=== PATIENT | male | born 1995 | race Caucasian/White ===

== ENCOUNTER 2017-09-21 22:53 | Emergency (ER) | payer SELFPAY ==
[2017-09-21 23:01] VITALS: BP 161/96
[2017-09-21] MEDS ORDERED: diphenhydrAMINE 25 MG Cap PO ONE (23:19)
--- NOTE | 2017-09-21 23:23 | EDM.PDOC ---
ED HPI GENERAL MEDICAL PROBLEM - General Chief Complaint: Eye Problems Stated Complaint: EYE PAIN Time Seen by Provider: 09/21/17 23:10 Source of Information: Reports: Patient, Family History Limitations: Reports: No Limitations - History of Present Illness INITIAL COMMENTS - FREE TEXT/NARRATIVE: Patient reports sharp stabbing pain behind his left eye. He states this started yesterday around 4 pm. He likens it to prior migraines, but he states prior migraine headaches involved the whole head not just this area. He does have some blurry vision. Denies taking anything prior to arrival. He has no nausea or vomiting. His girlfriend is currently ill with an upper respiratory infection. He denies these symptoms. He denies fever or chills, is not short of breath. No neurologic changes. No speech or gait changes. Onset: Gradual Onset Date: 09/20/17 Duration: Intermittent Quality: Reports: Sharp, Stabbing Severity: Moderate Associated Symptoms: Reports: Other (blurry vision) Left Eye Pain Score (Numeric/FACES): 9 - Related Data Allergies Allergy/AdvReac Type Severity Reaction Status Date / Time sumatriptan [From Imitrex] Allergy Numbness Verified 09/21/17 23:01 sumatriptan succinate Allergy Numbness Verified 09/21/17 23:01 [From Imitrex] Home Meds: Home Meds Ibuprofen 600 mg PO Q6HR PRN #30 tablet 09/26/13 [Rx] Past Medical History - Past Health History Medical/Surgical History: Denies Medical/Surgical History Social & Family History - Tobacco Use Smoking Status *Q: Current Every Day Smoker Years of Tobacco use: 3 Packs/Tins Daily: 1 Second Hand Smoke Exposure: No - Alcohol Use Days Per Week of Alcohol Use: 0 - Recreational Drug Use Recreational Drug Use: No ED ROS GENERAL - Review of Systems Review Of Systems: See Below Constitutional: Reports: No Symptoms HEENT: Reports: Eye Pain Respiratory: Reports: No Symptoms Cardiovascular: Reports: No Symptoms Endocrine: Reports: No Symptoms GI/Abdominal: Reports: No Symptoms : Reports: No Symptoms Musculoskeletal: Reports: No Symptoms Skin: Reports: No Symptoms Neurological: Reports: No Symptoms Psychiatric: Reports: No Symptoms Hematologic/Lymphatic: Reports: No Symptoms Immunologic: Reports: No Symptoms ED EXAM GENERAL W FULL EYE - Physical Exam Exam: See Below Exam Limited By: No Limitations General Appearance: Alert, WD/WN, Mild Distress Eye Exam: Bilateral Eye: EOMI, Normal Inspection, PERRL Visual Acuity (R) 20/: 20 Visual Acuity (L) 20/: 30 (supposed to be wearing corrective lenses) With Correction: No Eyelids: Bilateral: Normal Appearance Conjunctiva & Sclera: Left: Injected Cornea Exam: Bilateral: Normal Appearance Extraocular Movements: Bilateral: Intact Pupils: Normal Accommodation Pupillary Size: Bilateral: 3 mm Pupillary Reaction: Bilateral: Brisk Anterior Chamber: Bilateral: Normal Appearance Posterior Chamber: Bilateral: Normal Funduscopic Ears: Normal TMs Nose: Normal Inspection, Normal Mucosa, No Blood Throat/Mouth: Normal Inspection, Normal Lips, Normal Teeth, Normal Gums, Normal Oropharynx, Normal Voice, No Airway Compromise Head: Atraumatic, Normocephalic Neck: Normal Inspection, Supple, Non-Tender, Full Range of Motion Respiratory/Chest: No Respiratory Distress, Lungs Clear, Normal Breath Sounds, No Accessory Muscle Use, Chest Non-Tender Cardiovascular: Normal Peripheral Pulses, Regular Rate, Rhythm, No Edema, No Gallop, No JVD, No Murmur, No Rub GI/Abdominal: Normal Bowel Sounds, Soft, Non-Tender, No Organomegaly, No Distention, No Abnormal Bruit, No Mass Extremities: Normal Inspection, Normal Range of Motion, Non-Tender, Normal Capillary Refill, No Pedal Edema Neurological: Alert, Oriented, CN II-XII Intact, Normal Cognition, Normal Gait, Normal Reflexes, No Motor/Sensory Deficits Psychiatric: Normal Affect, Normal Mood Skin Exam: Warm, Dry, Intact, Normal Color, No Rash Lymphatic: No Adenopathy Course - Vital Signs Last Recorded V/S: Last Vital Signs Temp 35.7 C 09/21/17 22:58 Pulse 75 09/21/17 22:58 Resp 18 09/21/17 22:58 BP 161/96 H 09/21/17 22:58 Pulse Ox 100 09/21/17 22:58 - Orders/Labs/Meds Orders: Active Orders 24 hr Category Date Time Status chlorproMAZINE [Thorazine] Med 09/21/17 23:16 Once 25 mg IM ONETIME ONE Departure - Departure Time of Disposition: 23:26 Disposition: Home, Self-Care 01 Condition: Good Clinical Impression: Migraine equivalent - Discharge Information Instructions: Blurred Vision, Adult, Migraine Headache, [id number] Referrals: PCP,None [Primary Care Provider] - Additional Instructions: Follow up with your primary doctor as needed for symptom managment. If pain continues then you need to go see your eye doctor for further investigation. I do not see any acute concerns with your left eye. Your nose bleed is likely coincidental. This may be a variant of your migraine headaches. Take ibuprofen as needed for the pain. Please call if you have any further questions or concerns. - Problem List & Annotations (1) Migraine equivalent SNOMED Code(s): 06987649 Code(s): G43.109 - MIGRAINE WITH AURA, NOT INTRACTABLE, W/O STATUS MIGRAINOSUS Status: Acute Priority: Low Current Visit: Yes - Problem List Review Problem List Initiated/Reviewed/Updated: Yes - My Orders Last 24 Hours: My Active Orders 09/21/17 23:16 chlorproMAZINE [Thorazine] 25 mg IM ONETIME ONE - Assessment/Plan Last 24 Hours: My Active Orders 09/21/17 23:16 chlorproMAZINE [Thorazine] 25 mg IM ONETIME ONE Assessment:: migraine Plan: Follow up with your primary doctor as needed for symptom managment. If pain continues then you need to go see your eye doctor for further investigation. I do not see any acute concerns with your left eye. Your nose bleed is likely coincidental. This may be a variant of your migraine headaches. Take ibuprofen as needed for the pain. Please call if you have any further questions or concerns.
== END 2017-09-21 23:31 | disposition home or self-care (01) ==
LOC: VM.ED 22:53
DX: G43.109 Migraine with aura, not intractable, without status migrainosus (principal); F17.210 Nicotine dependence, cigarettes, uncomplicated; Z88.8 Allergy status to other drugs, medicaments and biological substances
CPT/HCPCS: 96372; 99283; A9270; J3230

== ENCOUNTER 2017-09-23 01:30 | Emergency (ER) | payer SELFPAY ==
[2017-09-23] MEDS ORDERED: Ketorolac 30 MG/ML SDV IM ONE (01:45)
[2017-09-23 01:51] VITALS: BP 140/82
[2017-09-23] MEDS ORDERED: Take Home: Acetaminophen/HYDROcodone 325-10 MG, 5 Tab Pack PO ONE (01:54)
--- NOTE | 2017-09-23 01:59 | EDM.PDOC ---
ED HPI GENERAL MEDICAL PROBLEM - General Chief Complaint: Headache Stated Complaint: Left sided headache Time Seen by Provider: 09/23/17 01:38 Source of Information: Reports: Patient History Limitations: Reports: No Limitations - History of Present Illness INITIAL COMMENTS - FREE TEXT/NARRATIVE: Patient presents with headache on the left side. I saw him on 09/21/16 with similar complaints. He was also seen in the clinic on Friday with similar complaints. Did have a head CT done at that time. Still complains of similar symptoms. Headache on the left front of his head with pain behind the left eye. Some blurry vision. NO nausea or vomiting, no chest pain, SOB, loss of consciousness, no gait disturbances. Report of CT shows some parasinus disease , no indication of side, but my viewing of the images appears to be on the left side. Onset Date: 09/20/17 Duration: Intermittent Location: Reports: Face Quality: Reports: Ache Severity: Moderate Worsens with: Reports: None Associated Symptoms: Reports: Headaches left sided headache/behind eye Pain Score (Numeric/FACES): 8 - Related Data Allergies Allergy/AdvReac Type Severity Reaction Status Date / Time sumatriptan [From Imitrex] Allergy Numbness Verified 09/21/17 23:01 sumatriptan succinate Allergy Numbness Verified 09/21/17 23:01 [From Imitrex] Home Meds: Home Meds Ibuprofen 600 mg PO Q6HR PRN #30 tablet 09/26/13 [Rx] Past Medical History - Past Health History Medical/Surgical History: Denies Medical/Surgical History Social & Family History - Tobacco Use Smoking Status *Q: Current Every Day Smoker Years of Tobacco use: 3 Packs/Tins Daily: 1 Second Hand Smoke Exposure: No - Alcohol Use Days Per Week of Alcohol Use: 0 - Recreational Drug Use Recreational Drug Use: No ED ROS GENERAL - Review of Systems Review Of Systems: See Below Constitutional: Reports: No Symptoms HEENT: Reports: Vision Change (blurry vision left side) Respiratory: Reports: No Symptoms Cardiovascular: Reports: No Symptoms Endocrine: Reports: No Symptoms GI/Abdominal: Reports: No Symptoms : Reports: No Symptoms Musculoskeletal: Reports: No Symptoms Skin: Reports: No Symptoms Neurological: Reports: Headache Psychiatric: Reports: No Symptoms Hematologic/Lymphatic: Reports: No Symptoms Immunologic: Reports: No Symptoms - Physical Exam Exam: See Below Exam Limited By: No Limitations General Appearance: Alert, WD/WN, Mild Distress Eye Exam: Bilateral Eye: EOMI, Normal Inspection, PERRL Ears: Normal TMs Nose: Normal Inspection, Normal Mucosa, No Blood Throat/Mouth: Normal Inspection, Normal Lips, Normal Teeth, Normal Gums, Normal Oropharynx, Normal Voice, No Airway Compromise Head Exam: Atraumatic, Normocephalic Neck: Normal Inspection, Supple, Non-Tender, Full Range of Motion Respiratory/Chest: No Respiratory Distress, Lungs Clear, Normal Breath Sounds, No Accessory Muscle Use, Chest Non-Tender Cardiovascular: Normal Peripheral Pulses, Regular Rate, Rhythm, No Edema, No Gallop, No JVD, No Murmur, No Rub GI/Abdominal: Normal Bowel Sounds, Soft, Non-Tender, No Organomegaly, No Distention, No Abnormal Bruit, No Mass Neuro Exam (Abbreviated): Alert, Oriented, CN II-XII Intact, Normal Cognition, Normal Gait, Normal Reflexes, No Motor/Sensory Deficits Back Exam: Normal Inspection, Full Range of Motion, NT Extremities: Normal Inspection, Normal Range of Motion, Non-Tender, No Pedal Edema, Normal Capillary Refill Psychiatric: Normal Affect, Normal Mood Skin Exam: Warm, Dry, Intact, Normal Color, No Rash Course - Vital Signs Last Recorded V/S: Last Vital Signs Temp 36.1 C 09/23/17 01:30 Pulse 64 09/23/17 01:30 Resp 16 09/23/17 01:30 BP 140/82 09/23/17 01:30 Pulse Ox - Orders/Labs/Meds Orders: Active Orders 24 hr Category Date Time Status Acetaminophen/HYDROcodone [Take Home: Acetaminophen/ Med 09/23/17 01:54 Once HYDROcodone 325-10MG] 1 packet PO ONETIME ONE Meds: Medications Discontinued Medications Generic Name Dose Route Start Last Admin Trade Name Freq PRN Reason Stop Dose Admin Ketorolac Tromethamine 30 mg 09/23/17 01:45 Toradol IM 09/23/17 01:46 ONETIME ONE Departure - Departure Time of Disposition: 02:03 Disposition: Home, Self-Care 01 Clinical Impression: Migraine - Discharge Information Instructions: Migraine Headache, [id number] Additional Instructions: Avoid triggers for your migraine headaches. These can definitely include smoking, over working, stress, poor diet and not enough hydration. Follow up with your primary doctor for prescription for migraine headaches. Please see your primary as symptoms warrant. Call if you have any questions or concerns - Problem List & Annotations (1) Migraine SNOMED Code(s): 95350800 Code(s): G43.909 - MIGRAINE, UNSP, NOT INTRACTABLE, WITHOUT STATUS MIGRAINOSUS Status: Acute Priority: Low Current Visit: Yes - Problem List Review Problem List Initiated/Reviewed/Updated: Yes - My Orders Last 24 Hours: My Active Orders 09/23/17 01:54 Acetaminophen/HYDROcodone [Take Home: Acetaminophen/HYDROcodone 325-10MG] 1 packet PO ONETIME ONE - Assessment/Plan Last 24 Hours: My Active Orders 09/23/17 01:54 Acetaminophen/HYDROcodone [Take Home: Acetaminophen/HYDROcodone 325-10MG] 1 packet PO ONETIME ONE Assessment:: migraine headache Plan: Avoid triggers for your migraine headaches. These can definitely include smoking, over working, stress, poor diet and not enough hydration. Follow up with your primary doctor for prescription for migraine headaches. Please see your primary as symptoms warrant. Call if you have any questions or concerns
== END 2017-09-23 02:26 | disposition home or self-care (01) ==
LOC: VM.ED 01:30
DX: G43.909 Migraine, unspecified, not intractable, without status migrainosus (principal); F17.210 Nicotine dependence, cigarettes, uncomplicated; Z88.8 Allergy status to other drugs, medicaments and biological substances
CPT/HCPCS: 96372; 99283; A9270; J1885